=== PATIENT | female | born 1965 | race Caucasian/White ===

== ENCOUNTER 2018-06-04 19:31 | Inpatient (IN) | payer MEDICAID ==
[~2018-06-04] VITALS: Ht 162.6 cm; Wt 60.9 kg
[2018-06-04] MEDS ORDERED: cloNIDine 0.1 mg tablet PO SCH (21:00)
[2018-06-04] MEDS ORDERED: hydrOXYzine 25 MG tablet PO SCH (21:00)
[2018-06-04] MEDS ORDERED: CLON-527 PO (21:18)
[2018-06-04] MEDS ORDERED: TIOT18CA3 IH (21:22)
[2018-06-04] MEDS ORDERED: BUPR1FIL3 SL (21:25)
[2018-06-04] MEDS ORDERED: CLON-529 PO (21:28)
[2018-06-04] MEDS ORDERED: HYDR-3686 PO (21:32)
[2018-06-04] MEDS ORDERED: LEVO175T2 PO (21:35)
[2018-06-04] MEDS ORDERED: LORA10TA7 PO (21:36)
[2018-06-04] MEDS ORDERED: SERT100T PO (21:38)
[2018-06-04] MEDS: buprenorphine/naloxone 8mg/2mg SL tablet SL SCH (22:25)
[2018-06-04] MEDS: clonazePAM 1mg tablet PO PRN (22:25)
[2018-06-05] MEDS: ipratropium 0.5 MG/2.5ML nebule IH SCH ×4 (03:00→20:02)
[2018-06-05] MEDS ORDERED: levoTHYROXINE 175mcg tablet PO SCH (07:00)
[2018-06-05 08:00] VITALS: BP 90/40
[2018-06-05] MEDS ORDERED: loratadine 10mg tablet PO SCH (08:00)
[2018-06-05] MEDS ORDERED: sertraline 50mg tablet PO SCH (08:00)
[2018-06-05] MEDS: buprenorphine/naloxone 8mg/2mg SL tablet SL SCH ×2 (08:48→20:22)
[2018-06-05] MEDS ORDERED: nicotine 21mg patch - 24 hr TD SCH (15:15)
[2018-06-05] MEDS ORDERED: aspirin/acetaminophen/caffeine tablet PO PRN (15:50)
[2018-06-05] MEDS ORDERED: normal saline 1000ml 1,000 ML IV SCH (17:00)
[2018-06-05] MEDS ORDERED: normal saline 1000ml 1,000 ML IV ONE (17:00)
[2018-06-05] MEDS ORDERED: cyclobenzaprine 10mg tablet PO PRN (18:30)
[2018-06-05 19:16] LABS: BASOPHILS # (AUTO) 0.1 X10'3 (0-0.2); BASOPHILS % (AUTO) 0.9 % (0-1); EOSINOPHILS # (AUTO) 0.2 X10'3 (0-0.9); EOSINOPHILS % (AUTO) 3.7 % (0-6); HEMATOCRIT 39.7 % (35.0-45.0); HEMOGLOBIN 13.2 g/dl (12.0-16.0); LYMPHOCYTES # (AUTO) 2.7 X10'3 (1.1-4.8); MEAN CORPUSCULAR HEMOGLOBIN 29.3 PG (27.0-31.0); MEAN CORPUSCULAR HGB CONC 33.2 % (33.0-36.5); MEAN CORPUSCULAR VOLUME 88.3 FL (78-98); MEAN PLATELET VOLUME 9.6 FL (7.4-10.4); MONOCYTES # (AUTO) 0.7 X10'3 (0-0.9); MONOCYTES % (AUTO) 10.1 % (2-12); NEUTROPHILS # (AUTO) 2.8 X10'3 (1.8-7.7); NEUTROPHILS % (AUTO) 43.3 % (42-75); PLATELET COUNT 257 X10'3 (140-440); RED BLOOD COUNT 4.49 X10'6 (4.20-5.60); RED CELL DISTRIBUTION WIDTH 13.1 % (11.5-14.5); WHITE BLOOD COUNT 6.5 X10'3 (4.5-11.0)
[2018-06-05 19:42] LABS: ALANINE AMINOTRANSFERASE 26 U/L (12-78); ALBUMIN 3.5 G/DL (3.4-5.0); ALKALINE PHOSPHATASE 63 IU/L (46-116); ANION GAP 10 (8-16); ASPARTATE AMINO TRANSFERASE 18 U/L (10-37); BILIRUBIN,TOTAL 0.2 MG/DL (0.1-1.0); BLOOD UREA NITROGEN 19 MG/DL (7-18); BUN/CREATININE RATIO 23.2 (6.6-38.0); CALCIUM 9.3 MG/DL (8.5-10.1); CHLORIDE 103 MMOL/L (99-107); CREATININE 0.82 MG/DL (0.40-0.90); GLUCOSE 123 MG/DL (70-104); POTASSIUM 3.9 MMOL/L (3.5-5.1); SODIUM 141 MMOL/L (135-145); TOTAL CARBON DIOXIDE 28.3 MMOL/L (24-32); eGFR 73 ML/MIN
[2018-06-05 19:45] LABS: MAGNESIUM 1.6 MG/DL (1.5-2.4); TROPONIN I 0.32 NG/ML (0.0-0.05)
[2018-06-05 20:00] VITALS: BP 98/31
[2018-06-05] MEDS: clonazePAM 1mg tablet PO PRN (20:22)
[2018-06-05] MEDS ORDERED: hydrOXYzine 25 MG tablet PO SCH (21:00)
[2018-06-05] MEDS ORDERED: cloNIDine 0.1 mg tablet PO SCH (21:00)
[2018-06-06] MEDS ORDERED: levoTHYROXINE 75mcg tablet PO SCH (07:00)
[2018-06-06] MEDS ORDERED: aripiprazole 5mg tablet PO SCH (08:00)
[2018-06-06] MEDS ORDERED: sertraline 50mg tablet PO SCH (08:00)
[2018-06-06] MEDS ORDERED: duloxetine 30mg CAPSULE.DR PO SCH (08:00)
== END 2018-06-05 21:55 | disposition short-term general hospital (02) | DRG 751 ==
LOC: EDBD 19:31 → EEVIPCON 19:31 → ADULT MH 19:31
PROVIDERS: ADMIT Psychiatry & Neurology Psychiatry; ATTEND Psychiatry & Neurology Psychiatry
DX: F33.9 Major depressive disorder, recurrent, unspecified (principal); R45.851 Suicidal ideations; F11.20 Opioid dependence, uncomplicated; E11.9 Type 2 diabetes mellitus without complications; I10 Essential (primary) hypertension; M54.2 Cervicalgia; J44.9 Chronic obstructive pulmonary disease, unspecified; G89.29 Other chronic pain; E03.9 Hypothyroidism, unspecified; F17.200 Nicotine dependence, unspecified, uncomplicated; S61.519A Laceration without foreign body of unspecified wrist, initial encounter; R25.1 Tremor, unspecified; X78.8XXA Intentional self-harm by other sharp object, initial encounter; F12.90 Cannabis use, unspecified, uncomplicated; J30.2 Other seasonal allergic rhinitis; G43.909 Migraine, unspecified, not intractable, without status migrainosus; Z59.0 Homelessness; Z82.49 Family history of ischemic heart disease and other diseases of the circulatory system; Z80.9 Family history of malignant neoplasm, unspecified; Z95.0 Presence of cardiac pacemaker; Z91.5 Personal history of self-harm; Z82.5 Family history of asthma and other chronic lower respiratory diseases; Z79.899 Other long term (current) drug therapy; Z90.49 Acquired absence of other specified parts of digestive tract; Z98.891 History of uterine scar from previous surgery; Y93.89 Activity, other specified; Y92.89 Other specified places as the place of occurrence of the external cause; Y99.8 Other external cause status
CPT/HCPCS: 36415; 80053; 83735; 84443; 84484; 85025; 93005; 94640; 94760; J7030; Q0177

== ENCOUNTER 2018-06-05 20:45 | Inpatient (IN) | payer MEDICAID ==
[~2018-06-05] VITALS: Ht 162.6 cm; Wt 60.9 kg
[~2018-06-05 20:45] MED LIST: BUPR1FIL3 SL; CLON-527 PO; CLON-529 PO; HYDR-3686 PO; LEVO175T2 PO; LORA10TA7 PO; SERT100T PO; TIOT18CA3 IH
[2018-06-05 22:15] VITALS: BP 89/46
[2018-06-05] MEDS ORDERED: magnesium hydroxide 30ml (MOM) UD suspension PO PRN (22:25)
[2018-06-05] MEDS ORDERED: acetaminophen 325mg tablet PO PRN ×2 (22:25)
[2018-06-05] MEDS ORDERED: mag hydrox/Alum hydrox/simeth 30ml oral suspension PO PRN (22:25)
[2018-06-05] MEDS ORDERED: ondansetron/PF 4mg/2ml inj IV PRN (22:25)
[2018-06-05] MEDS: normal saline 1000ml 1,000 ML IV SCH (22:35)
[2018-06-05 23:00] VITALS: BP_SYST 87; BP_SYST 93; BP_DIAS 42; BP_DIAS 43
[2018-06-06] VITALS (9 sets, daily range): BP systolic 0–111; BP diastolic 30–68
[2018-06-06] MEDS: clonazePAM 1mg tablet PO PRN ×2 (01:59→15:36)
[2018-06-06 03:39] LABS: BASOPHILS % (AUTO) 0.5 % (0-1); EOSINOPHILS # (AUTO) 0.2 X10'3 (0-0.9); EOSINOPHILS % (AUTO) 3.6 % (0-6); HEMATOCRIT 35.3 % (35.0-45.0); HEMOGLOBIN 11.8 g/dl (12.0-16.0); LYMPHOCYTES # (AUTO) 2.4 X10'3 (1.1-4.8); LYMPHOCYTES % (AUTO) 43.5 % (21-51); MEAN CORPUSCULAR HEMOGLOBIN 29.5 PG (27.0-31.0); MEAN CORPUSCULAR HGB CONC 33.3 % (33.0-36.5); MEAN CORPUSCULAR VOLUME 88.5 FL (78-98); MEAN PLATELET VOLUME 9.3 FL (7.4-10.4); MONOCYTES # (AUTO) 0.6 X10'3 (0-0.9); MONOCYTES % (AUTO) 10.5 % (2-12); NEUTROPHILS # (AUTO) 2.3 X10'3 (1.8-7.7); NEUTROPHILS % (AUTO) 41.9 % (42-75); PLATELET COUNT 243 X10'3 (140-440); RED BLOOD COUNT 3.99 X10'6 (4.20-5.60); RED CELL DISTRIBUTION WIDTH 13.1 % (11.5-14.5); WHITE BLOOD COUNT 5.6 X10'3 (4.5-11.0)
[2018-06-06 03:54] LABS: ALBUMIN 3.2 G/DL (3.4-5.0); ANION GAP 5 (8-16); BLOOD UREA NITROGEN 15 MG/DL (7-18); BUN/CREATININE RATIO 21.7 (6.6-38.0); CHLORIDE 108 MMOL/L (99-107); CREATININE 0.69 MG/DL (0.40-0.90); GLUCOSE 93 MG/DL (70-104); POTASSIUM 3.9 MMOL/L (3.5-5.1); SODIUM 143 MMOL/L (135-145); TOTAL CARBON DIOXIDE 29.7 MMOL/L (24-32); TROPONIN I 0.25 NG/ML (0.0-0.05); eGFR 89 ML/MIN
[2018-06-06] MEDS: loratadine 10mg tablet PO SCH (07:10)
[2018-06-06] MEDS: levoTHYROXINE 175mcg tablet PO SCH (07:11)
[2018-06-06] MEDS: sertraline 50mg tablet PO SCH (07:13)
[2018-06-06] MEDS: buprenorphine/naloxone 8mg/2mg SL tablet SL SCH ×2 (08:00→21:41)
[2018-06-06] MEDS: normal saline 1000ml 1,000 ML IV SCH ×2 (08:23→16:03)
[2018-06-06] MEDS ORDERED: regadenoson 0.4mg/5ml syringe IV PRN (09:55)
[2018-06-06] MEDS ORDERED: aminophylline 250mg/10ml inj. IV PRN (09:55)
[2018-06-06] MEDS ORDERED: metoprolol tartrate 1mg/ml inj IV PRN (09:55)
[2018-06-06] MEDS ORDERED: nitroGLYCERIN 0.4mg SUBLingual tab SL PRN (09:55)
[2018-06-06] MEDS: HYDROcodone/acetaminophen 5mg/325mg tablet PO PRN ×3 (10:09→19:13)
[2018-06-06] MEDS ORDERED: aspirin 81mg tablet.DR PO ONE (14:40)
[2018-06-06] MEDS: atorvastatin 20mg tablet PO SCH (14:50)
[2018-06-06] MEDS ORDERED: cloNIDine 0.1 mg tablet PO SCH (21:00)
[2018-06-06] MEDS ORDERED: hydrOXYzine 25 MG tablet PO SCH (21:00)
[2018-06-07] VITALS (18 sets, daily range): BP systolic 8–142; BP diastolic 30–65
[2018-06-07] MEDS: clonazePAM 1mg tablet PO PRN (01:14)
[2018-06-07] MEDS: HYDROcodone/acetaminophen 5mg/325mg tablet PO PRN ×2 (05:34→12:01)
[2018-06-07 06:44] LABS: BASOPHILS # (AUTO) 0.1 X10'3 (0-0.2); BASOPHILS % (AUTO) 1.5 % (0-1); EOSINOPHILS # (AUTO) 0.3 X10'3 (0-0.9); EOSINOPHILS % (AUTO) 4.7 % (0-6); HEMATOCRIT 35.9 % (35.0-45.0); HEMOGLOBIN 11.8 g/dl (12.0-16.0); LYMPHOCYTES # (AUTO) 2.4 X10'3 (1.1-4.8); LYMPHOCYTES % (AUTO) 40.4 % (21-51); MEAN CORPUSCULAR HEMOGLOBIN 29.4 PG (27.0-31.0); MEAN PLATELET VOLUME 9.7 FL (7.4-10.4); MONOCYTES # (AUTO) 0.6 X10'3 (0-0.9); MONOCYTES % (AUTO) 9.6 % (2-12); NEUTROPHILS # (AUTO) 2.6 X10'3 (1.8-7.7); NEUTROPHILS % (AUTO) 43.8 % (42-75); PLATELET COUNT 249 X10'3 (140-440); RED BLOOD COUNT 4.03 X10'6 (4.20-5.60); RED CELL DISTRIBUTION WIDTH 13.2 % (11.5-14.5)
[2018-06-07] MEDS: normal saline 1000ml 1,000 ML IV SCH ×2 (07:00→07:58)
[2018-06-07 07:05] LABS: ALBUMIN 2.9 G/DL (3.4-5.0); ANION GAP 8 (8-16); BLOOD UREA NITROGEN 13 MG/DL (7-18); BUN/CREATININE RATIO 19.1 (6.6-38.0); CALCIUM 8.9 MG/DL (8.5-10.1); CHLORIDE 108 MMOL/L (99-107); CREATININE 0.68 MG/DL (0.40-0.90); GLUCOSE 96 MG/DL (70-104); POTASSIUM 4.3 MMOL/L (3.5-5.1); SODIUM 143 MMOL/L (135-145); TOTAL CARBON DIOXIDE 27.4 MMOL/L (24-32); eGFR > 90 ML/MIN
[2018-06-07] MEDS: loratadine 10mg tablet PO SCH (07:53)
[2018-06-07] MEDS: atorvastatin 20mg tablet PO SCH (07:53)
[2018-06-07] MEDS: levoTHYROXINE 175mcg tablet PO SCH (07:54)
[2018-06-07] MEDS: sertraline 50mg tablet PO SCH (07:55)
[2018-06-07] MEDS: buprenorphine/naloxone 8mg/2mg SL tablet SL SCH ×2 (07:56→12:01)
[2018-06-07] MEDS ORDERED: aspirin 81mg tablet.DR PO SCH (08:00)
[2018-06-07] MEDS ORDERED: regadenoson 0.4mg/5ml syringe IV ONE (09:16)
[2018-06-07] MEDS ORDERED: aminophylline inj. 10 ML IV ONE (09:16)
[2018-06-07] MEDS ORDERED: iohexol 350MG/ML 100ml bottle IV ONE (12:56)
[2018-06-07] MEDS ORDERED: ATOR10TA PO (14:02)
[2018-06-07] MEDS ORDERED: ASPI81TA52 PO (14:02)
== END 2018-06-07 18:05 | DRG 207 ==
LOC: PCU 3S 20:45
PROVIDERS: ADMIT Internal Medicine; ATTEND Family Medicine
PROC: B32T1ZZ Computerized Tomography (CT Scan) of Left Pulmonary Artery using Low Osmolar Contrast (ICD-10-PCS; principal; 2018-06-07)
PROC: B3201ZZ Computerized Tomography (CT Scan) of Thoracic Aorta using Low Osmolar Contrast (ICD-10-PCS; 2018-06-07)
PROC: B32S1ZZ Computerized Tomography (CT Scan) of Right Pulmonary Artery using Low Osmolar Contrast (ICD-10-PCS; 2018-06-07)
PROC: 4A02XM4 Measurement of Cardiac Total Activity, External Approach (ICD-10-PCS; 2018-06-07)
PROC: 3E033HZ Introduction of Radioactive Substance into Peripheral Vein, Percutaneous Approach (ICD-10-PCS; 2018-06-07)
DX: I95.2 Hypotension due to drugs (principal); R45.851 Suicidal ideations; F11.20 Opioid dependence, uncomplicated; F17.210 Nicotine dependence, cigarettes, uncomplicated; F29 Unspecified psychosis not due to a substance or known physiological condition; F32.9 Major depressive disorder, single episode, unspecified; F41.9 Anxiety disorder, unspecified; G89.4 Chronic pain syndrome; I25.10 Atherosclerotic heart disease of native coronary artery without angina pectoris; J44.9 Chronic obstructive pulmonary disease, unspecified; E03.9 Hypothyroidism, unspecified; M54.5 Low back pain; R74.8 Abnormal levels of other serum enzymes; M54.2 Cervicalgia; T46.5X5A Adverse effect of other antihypertensive drugs, initial encounter; Z95.0 Presence of cardiac pacemaker; Y92.89 Other specified places as the place of occurrence of the external cause; Z79.899 Other long term (current) drug therapy
CPT/HCPCS: 36415; 71275; 78452; 80048; 84484; 85025; 87070; 93017; 93306; A9500; G0378; J0280; J2405; J7030; Q0177; Q9967